=== PATIENT | female | born 1960 | race Caucasian/White ===

== ENCOUNTER → 2021-07-25 | Outpatient (CLI) | payer OTHER ==
[~2021-07-25] MED LIST: GABAPENTIN600 MG PO; IMDUR ER TAB 3030 MG PO; LEVAQUIN750 MG PO; METHYLPREDNISOLO4 M1 PO; NEXIUM40 MG PO; NITROGLYCERIN0.4 MG SL; OXYCODONE HCL10 MG PO; OXYMORPHONE HCL10 MG PO; SPIRIVA HANDIH18 MCG INH; ZOFRAN ODT 4 MG4 MG PO
== END ==
LOC: KOH-I 07-13 10:30
DX: R10.32 Left lower quadrant pain (principal); R10.31 Right lower quadrant pain; R16.0 Hepatomegaly, not elsewhere classified; M51.86 Other intervertebral disc disorders, lumbar region
CPT/HCPCS: 74176

== ENCOUNTER → 2021-08-18 | Outpatient (CLI) | payer OTHER | LOC: EMI 13:00 | DX: R51.9 Headache, unspecified (principal); R41.3 Other amnesia; K11.8 Other diseases of salivary glands | CPT/HCPCS: 70551 ==

== ENCOUNTER → 2021-11-30 | Outpatient (CLI) | payer OTHER | LOC: US 14:21 | DX: K11.9 Disease of salivary gland, unspecified (principal) | CPT/HCPCS: 76536 ==